=== PATIENT | female | born 1965 | race Caucasian/White ===

== ENCOUNTER 2017-09-11 17:54 | Emergency (ER) | payer OTHER ==
[2017-09-11] MEDS ORDERED: Diphtheria,Pertussis(Acell),Tetanus Vaccine 0.5 ML SDV IM ONE (18:19)
[2017-09-11] MEDS ORDERED: Bacitracin Oint 1 GM U/D Packet TOP ONE (18:41)
[2017-09-11 18:42] VITALS: BP 126/97
--- NOTE | 2017-09-11 18:48 | EDM.PDOC ---
ED HPI GENERAL MEDICAL PROBLEM - General Chief Complaint: Upper Extremity Injury/Pain Stated Complaint: SLICED END OF FINGER, [id number] Time Seen by Provider: 09/11/17 18:35 Source of Information: Reports: Patient History Limitations: Reports: No Limitations - History of Present Illness INITIAL COMMENTS - FREE TEXT/NARRATIVE: This 51 yo female patient reports to the ED with a laceration to her right distal thumb. The patient reports she was slicing potatoes when the incident happened. The patient came to the ED to get the bleeding to stop. Onset: Today Duration: Minutes:, Constant Location: Reports: Upper Extremity, Right Quality: Reports: Dull Severity: Mild Improves with: Reports: None Worsens with: Reports: None Associated Symptoms: Reports: No Other Symptoms - Related Data Allergies Allergy/AdvReac Type Severity Reaction Status Date / Time erythromycin base Allergy Cannot Verified 09/11/17 18:15 Remember lamotrigine [From Lamictal] AdvReac Mild Rash Verified 09/11/17 18:15 Penicillins AdvReac Mild Rash Verified 09/11/17 18:15 phenobarbital AdvReac Rash Unverified 09/11/17 18:15 Home Meds: Home Meds Aspirin [Adult Low Dose Aspirin EC] 81 mg PO DAILY 09/24/13 [History] Atenolol 25 mg PO DAILY 09/24/13 [History] Celecoxib [CeleBREX] 200 mg PO DAILY 09/24/13 [History] Gabapentin [Neurontin] 300 mg PO DAILY 09/24/13 [History] Hydrochlorothiazide 25 mg PO ASDIRECTED 09/24/13 [History] Omeprazole 20 mg PO DAILY 09/24/13 [History] buPROPion HCl [Wellbutrin Sr] 150 mg PO BID 09/24/13 [History] traZODone 25 tab PO BEDTIME 09/24/13 [History] Past Medical History HEENT History: Reports: None Cardiovascular History: Reports: None Respiratory History: Reports: Asthma, COPD Gastrointestinal History: Reports: None Genitourinary History: Reports: None 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 Musculoskeletal History: Reports: Other (See Below) Other Musculoskeletal History: back surgery Neurological History: Reports: None Endocrine/Metabolic History: Reports: None Hematologic History: Reports: None Immunologic History: Reports: None Oncologic (Cancer) History: Reports: None Dermatologic History: Reports: None - Past Surgical History HEENT Surgical History: Reports: None Cardiovascular Surgical History: Reports: None Respiratory Surgical History: Reports: None GI Surgical History: Reports: None Female Surgical History: Reports: None Social & Family History - Tobacco Use Smoking Status *Q: Never Smoker - Recreational Drug Use Recreational Drug Use: No Review of Systems - Review of Systems Review Of Systems: ROS reveals no pertinent complaints other than HPI. ED EXAM, GENERAL - Physical Exam Exam: See Below Exam Limited By: No Limitations General Appearance: Alert, WD/WN, Mild Distress Eye Exam: Bilateral Eye: EOMI, Normal Inspection, PERRL Ears: Normal External Exam, Normal Canal, Hearing Grossly Normal, Normal TMs Nose: Normal Inspection, Normal Mucosa, No Blood Throat/Mouth: Normal Inspection, Normal Lips, Normal Teeth, Normal Gums, Normal Oropharynx, Normal Voice, No Airway Compromise Head: Atraumatic, Normocephalic Neck: Normal Inspection, Supple, Non-Tender, Full Range of Motion Respiratory/Chest: No Respiratory Distress, No Accessory Muscle Use Cardiovascular: Normal Peripheral Pulses, Regular Rate, Rhythm (Female) Exam: Deferred Rectal (Female) Exam: Deferred Extremities: No Pedal Edema, Normal Capillary Refill Neurological: Alert, Oriented, CN II-XII Intact, Normal Cognition, Normal Gait, Normal Reflexes, No Motor/Sensory Deficits Psychiatric: Normal Affect, Normal Mood Skin Exam: Warm, Dry, Normal Color, No Rash, Other (The patient cut the tip of her right thumb off while cutting potatoes. There is no tissue present for suturing. ) Course - Orders/Labs/Meds Orders: Active Orders 24 hr Category Date Time Status Vaccines to be Administered [RC] PER UNIT ROUTINE Care 09/11/17 18:19 Active Bacitracin [Bacitracin Oint 1 GM] Med 09/11/17 18:41 Once 1 dose TOP ONETIME ONE Meds: Medications Discontinued Medications Generic Name Dose Route Start Last Admin Trade Name Freq PRN Reason Stop Dose Admin Diphtheria/Tetanus/Acell Pertussis 0.5 ml 09/11/17 18:19 09/11/17 18:26 Adacel IM 09/11/17 18:20 0.5 ml .ONCE ONE Administration Departure - Departure Time of Disposition: 18:45 Disposition: Home, Self-Care 01 Condition: Fair Clinical Impression: Laceration - Discharge Information Instructions: Laceration Care, Adult, [id number] Care Plan Goals: The patient was advised of the examination results during the visit. The patient was given a Tetanus shot while in the ED. A pressure dressing was placed over the wound. The patient was encouraged to keep the area clean and dry over the next 48 hours. If the patient has any additional symptoms or concerns, the patient should follow-up with her primary care facility or return to the emergency department. - My Orders Last 24 Hours: My Active Orders 09/11/17 18:19 Vaccines to be Administered [RC] PER UNIT ROUTINE 09/11/17 18:41 Bacitracin [Bacitracin Oint 1 GM] 1 dose TOP ONETIME ONE - Assessment/Plan Last 24 Hours: My Active Orders 09/11/17 18:19 Vaccines to be Administered [RC] PER UNIT ROUTINE 09/11/17 18:41 Bacitracin [Bacitracin Oint 1 GM] 1 dose TOP ONETIME ONE
== END 2017-09-11 19:17 | disposition home or self-care (01) ==
LOC: DL.ED 17:54
DX: S61.011A Laceration without foreign body of right thumb without damage to nail, initial encounter (principal); Z23 Encounter for immunization; Z79.82 Long term (current) use of aspirin; Z79.899 Other long term (current) drug therapy; Z88.0 Allergy status to penicillin; Z88.1 Allergy status to other antibiotic agents; Z88.8 Allergy status to other drugs, medicaments and biological substances; W45.8XXA Other foreign body or object entering through skin, initial encounter
CPT/HCPCS: 90471; 90715; 99283

== ENCOUNTER 2019-09-17 07:09 | Emergency (ER) | payer BC, OTHER ==
[2019-09-17 07:30] VITALS: BP 139/93; PULSE 96
[2019-09-17 07:53] LABS: ANION GAP 13.3; CHLORIDE,CL 104 mmol/L (101-111); SODIUM,NA 138 mmol/L (135-145)
--- NOTE | 2019-09-17 08:07 | EDM.PDOC ---
ED HPI GENERAL MEDICAL PROBLEM - General Chief Complaint: Cardiovascular Problem Stated Complaint: FEELING FUNNY/FEELS LIKE HEART BEATING FAST Time Seen by Provider: 09/17/19 07:50 Source of Information: Reports: Patient History Limitations: Reports: No Limitations - History of Present Illness INITIAL COMMENTS - FREE TEXT/NARRATIVE: This 53 yo female patient reports to the ED due to feeling heaviness in her chest/head, palpitations and dizziness. The patient reports she woke up this morning at about 0400 feeling like her head was heavy (the patient reports she felt like her heartbeat was in her head). The patient reports she got up from bed, mopped the floor then took her medications. The patient reports she also took her blood pressure (150/105) and pulse (110) at that time. The patient reports she has not been feeling right since that time. The patient reports a similar event about 2 weeks ago, but has not had any problems since that time. The patient reports her head still feels heavy, but does not have the heaviness in her chest at this time. Onset: Today Onset Date: 09/17/19 Onset Time: 04:00 Duration: Constant Location: Reports: Head, Chest Quality: Reports: Other Severity: Moderate Improves with: Reports: None Worsens with: Reports: None Context: Reports: Other Associated Symptoms: Reports: Other - Related Data Allergies Allergy/AdvReac Type Severity Reaction Status Date / Time erythromycin base Allergy Mild Cannot Verified 09/17/19 07:37 Remember lamotrigine [From Lamictal] AdvReac Mild Rash Verified 09/17/19 07:37 Penicillins AdvReac Rash Verified 09/17/19 07:36 phenobarbital AdvReac Rash Verified 09/17/19 07:37 Home Meds: Home Meds Aspirin [Adult Low Dose Aspirin EC] 81 mg PO DAILY 09/24/13 [History] Atenolol 25 mg PO DAILY 09/24/13 [History] Celecoxib [CeleBREX] 200 mg PO DAILY 09/24/13 [History] Gabapentin [Neurontin] 300 mg PO DAILY 09/24/13 [History] Hydrochlorothiazide 25 mg PO ASDIRECTED 09/24/13 [History] Omeprazole 20 mg PO DAILY 09/24/13 [History] buPROPion HCl [Wellbutrin Sr] 150 mg PO BID 09/24/13 [History] traZODone 25 tab PO BEDTIME 09/24/13 [History] Albuterol [Proventil HFA] 1 puff BUCCAL ASDIRECTED 09/11/17 [History] Past Medical History HEENT History: Reports: None Cardiovascular History: Reports: None Respiratory History: Reports: Asthma, COPD Gastrointestinal History: Reports: None Genitourinary History: Reports: None 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 Musculoskeletal History: Reports: Other (See Below) Other Musculoskeletal History: back surgery Neurological History: Reports: None Endocrine/Metabolic History: Reports: None Hematologic History: Reports: None Immunologic History: Reports: None Oncologic (Cancer) History: Reports: None Dermatologic History: Reports: None - Past Surgical History HEENT Surgical History: Reports: None Cardiovascular Surgical History: Reports: None Respiratory Surgical History: Reports: None GI Surgical History: Reports: None Female Surgical History: Reports: None Social & Family History - Family History Family Medical History: Noncontributory - Tobacco Use Smoking Status *Q: Never Smoker Second Hand Smoke Exposure: No - Caffeine Use Caffeine Use: Reports: Soda - Recreational Drug Use Recreational Drug Use: No ED ROS GENERAL - Review of Systems Review Of Systems: Comprehensive ROS is negative, except as noted in HPI. ED EXAM, GENERAL - Physical Exam Exam: See Below Exam Limited By: No Limitations General Appearance: Alert, WD/WN, Moderate Distress Eye Exam: Bilateral Eye: EOMI, Normal Inspection, PERRL Ears: Normal External Exam, Normal Canal, Hearing Grossly Normal, Normal TMs Nose: Normal Inspection, Normal Mucosa, No Blood Throat/Mouth: Normal Inspection, Normal Lips, Normal Teeth, Normal Gums, Normal Oropharynx, Normal Voice, No Airway Compromise Head: Atraumatic, Normocephalic Neck: Normal Inspection, Supple, Non-Tender, Full Range of Motion Respiratory/Chest: No Respiratory Distress, Lungs Clear, Normal Breath Sounds, No Accessory Muscle Use, Chest Non-Tender Cardiovascular: Normal Peripheral Pulses, Regular Rate, Rhythm, No Edema, No Gallop, No JVD, No Murmur, No Rub GI/Abdominal: Normal Bowel Sounds, Soft, Non-Tender, No Organomegaly, No Distention, No Abnormal Bruit, No Mass (Female) Exam: Deferred Rectal (Female) Exam: Deferred Back Exam: Normal Inspection, Full Range of Motion, NT Extremities: Normal Inspection, Normal Range of Motion, Non-Tender, Normal Capillary Refill, No Pedal Edema Neurological: Alert, Oriented, CN II-XII Intact, Normal Cognition, Normal Reflexes, No Motor/Sensory Deficits Psychiatric: Normal Affect, Anxious Skin Exam: Warm, Dry, Intact, Normal Color, No Rash Lymphatic: No Adenopathy Course - Vital Signs Last Recorded V/S: Last Vital Signs Temp 36.9 C 09/17/19 07:12 Pulse 96 09/17/19 07:12 Resp 15 09/17/19 07:12 BP 139/93 H 09/17/19 07:12 Pulse Ox 95 09/17/19 07:12 Orthostatic Blood Pressure [ 143/106 Standing] Orthostatic Blood Pressure [ 149/114 Sitting] Orthostatic Blood Pressure [ 137/96 Supine] - Orders/Labs/Meds Orders: Active Orders 24 hr Category Date Time Status EKG Documentation Completion [RC] URGENT Care 09/17/19 07:11 Active Labs: Laboratory Tests 09/17/19 09/17/19 09/17/19 Range/Units 07:21 07:21 08:05 WBC 7.1 (5.0-10.0) 10^3/uL RBC 4.32 (4.2-5.4) 10^6/uL Hgb 13.4 (12.0-16.0) g/dL Hct 40.1 (37.0-47.0) % MCV 92.8 (80-100) fL MCH 31.0 (27.0-34.0) pg MCHC 33.4 (33.0-35.0) g/dL Plt Count 288 (150-450) 10^3/uL Neut % (Auto) 66.6 (42.2-75.2) % Lymph % (Auto) 20.3 L (20.5-50.1) % Rains % (Auto) 8.4 H (2-8) % Eos % (Auto) 4.1 H (1.0-3.0) % Baso % (Auto) 0.6 (0.0-1.0) % Sodium 138 (135-145) mmol/L Potassium 3.3 L (3.6-5.0) mmol/L Chloride 104 (101-111) mmol/L Carbon Dioxide 24.0 (21.0-31.0) mmol/L Anion Gap 13.3 BUN 17 (7-18) mg/dL Creatinine 0.8 (0.6-1.3) mg/dL Est Cr Clr Drug Dosing 59.76 mL/min Estimated GFR (MDRD) > 60 BUN/Creatinine Ratio 21.25 Glucose 123 H (74-105) mg/dL Calcium 9.5 (8.4-10.2) mg/dl Total Bilirubin 0.5 (0.2-1.0) mg/dL AST 34 (10-42) IU/L ALT 35 (10-60) IU/L Alkaline Phosphatase 47 (42-121) IU/L Ammonia < 9 L (11-35) umol/L Troponin I < 0.02 (0.00-0.02) ng/ml Total Protein 7.3 (6.7-8.2) g/dl Albumin 3.9 (3.2-5.5) g/dl Globulin 3.4 Albumin/Globulin Ratio 1.15 Departure - Departure Time of Disposition: 08:35 Disposition: Home, Self-Care 01 Condition: Fair Clinical Impression: Anxiety about health Instructions: Panic Attack, [id number] Forms: ED Department Discharge Care Plan Goals: The patient was advised of the examination, lab and EKG results during the visit. The patient was encouraged to continue with her current medications. The patient should keep a log of her home blood pressures to review with her primary care facility. If the patient has any additional symptoms or concerns, the patient should either return to the emergency department or visit her primary care facility. - My Orders Last 24 Hours: My Active Orders 09/17/19 07:11 EKG Documentation Completion [RC] URGENT - Assessment/Plan Last 24 Hours: My Active Orders 09/17/19 07:11 EKG Documentation Completion [RC] URGENT
== END 2019-09-17 08:57 | disposition home or self-care (01) ==
LOC: DL.ED 07:09
DX: F41.9 Anxiety disorder, unspecified (principal); J44.9 Chronic obstructive pulmonary disease, unspecified; Z79.82 Long term (current) use of aspirin; Z88.0 Allergy status to penicillin; Z88.1 Allergy status to other antibiotic agents; Z88.8 Allergy status to other drugs, medicaments and biological substances
CPT/HCPCS: 36415; 80053; 82140; 84484; 85025; 93005; 99285-25

== ENCOUNTER 2022-07-02 08:25 | Emergency (ER) | payer BC, OTHER ==
[2022-07-02 08:40] VITALS: BP 123/66; PULSE 106
[2022-07-02] MEDS ORDERED: Orphenadrine 60 MG/2 ML Inj IM ONE (08:43)
[2022-07-02] MEDS ORDERED: Dexamethasone 4 MG/ML SDV IM ONE (08:43)
== END 2022-07-02 09:06 | disposition home or self-care (01) ==
LOC: DL.ED 08:25
DX: M79.601 Pain in right arm (principal); M79.602 Pain in left arm; J45.909 Unspecified asthma, uncomplicated; E66.9 Obesity, unspecified; Z68.30 Body mass index [BMI] 30.0-30.9, adult; Z88.1 Allergy status to other antibiotic agents; Z88.8 Allergy status to other drugs, medicaments and biological substances; Z88.0 Allergy status to penicillin; Z79.899 Other long term (current) drug therapy; Z79.82 Long term (current) use of aspirin
CPT/HCPCS: 96372; 99283; J1100; J2360

== ENCOUNTER 2023-03-31 05:55 | Day surgery (SDC) | payer BC ==
[2023-03-31] MEDS ORDERED: fentaNYL 100 MCG/2 ML SDV IV ONE ×3 (05:56→07:22)
[2023-03-31] MEDS ORDERED: Midazolam 1 MG/ML 2 ML SDV IV ONE ×3 (05:56→07:23)
[2023-03-31] MEDS ORDERED: Dextrose 5%-0.45% NaCl 1,000 ML IV SCH (06:45)
[2023-03-31] MEDS ORDERED: fentaNYL 100 MCG/2 ML SDV ONE (07:16)
[2023-03-31] MEDS ORDERED: Midazolam 1 MG/ML 2 ML SDV ONE (07:16)
[2023-03-31 08:47] VITALS: BP 112/85; PULSE 65
== END 2023-03-31 09:17 | disposition home or self-care (01) ==
LOC: DL.ENDO 05:55
PROVIDERS: ATTEND Internal Medicine Gastroenterology
DX: K21.00 Gastro-esophageal reflux disease with esophagitis, without bleeding (principal); K44.9 Diaphragmatic hernia without obstruction or gangrene; K31.7 Polyp of stomach and duodenum; E66.09 Other obesity due to excess calories; G47.33 Obstructive sleep apnea (adult) (pediatric); F31.9 Bipolar disorder, unspecified; I10 Essential (primary) hypertension; E78.5 Hyperlipidemia, unspecified; D50.0 Iron deficiency anemia secondary to blood loss (chronic); Z88.0 Allergy status to penicillin; Z88.2 Allergy status to sulfonamides; Z88.1 Allergy status to other antibiotic agents; Z88.8 Allergy status to other drugs, medicaments and biological substances; Z68.39 Body mass index [BMI] 39.0-39.9, adult
CPT/HCPCS: 87077; J2250; J3010; J7042

== ENCOUNTER 2023-04-04 06:18 | Day surgery (SDC) | payer BC ==
[~2023-04-04 06:18] MED LIST: Dextrose 5%-0.45% NaCl 1,000 ML IV SCH; Sodium Chloride 0.9% 10 ML Syringe FLUSH PRN; Sodium Chloride 0.9% 10 ML Syringe FLUSH SCH
[2023-04-04] MEDS ORDERED: fentaNYL 100 MCG/2 ML SDV ONE (08:01)
[2023-04-04] MEDS ORDERED: fentaNYL 100 MCG/2 ML SDV IVPUSH ONE (08:01)
[2023-04-04] MEDS ORDERED: Midazolam 1 MG/ML 2 ML SDV ONE (08:01)
[2023-04-04] MEDS ORDERED: Midazolam 1 MG/ML 2 ML SDV IVPUSH ONE (08:01)
[2023-04-04] MEDS ORDERED: fentaNYL 100 MCG/2 ML SDV IV ONE ×3 (08:09→08:17)
[2023-04-04] MEDS ORDERED: Midazolam 1 MG/ML 2 ML SDV IV ONE ×6 (08:10→08:16)
[2023-04-04 10:22] VITALS: BP 124/91
[2023-04-04 10:23] VITALS: PULSE 72
== END 2023-04-04 10:05 | disposition home or self-care (01) ==
LOC: DL.ENDO 06:18
PROVIDERS: ATTEND Internal Medicine Gastroenterology
DX: D50.9 Iron deficiency anemia, unspecified (principal); K57.30 Diverticulosis of large intestine without perforation or abscess without bleeding; K21.9 Gastro-esophageal reflux disease without esophagitis; M54.50 Low back pain, unspecified; F32.A Depression, unspecified; G47.33 Obstructive sleep apnea (adult) (pediatric); I10 Essential (primary) hypertension; E78.5 Hyperlipidemia, unspecified; E66.09 Other obesity due to excess calories; Z88.1 Allergy status to other antibiotic agents; Z88.0 Allergy status to penicillin; Z88.8 Allergy status to other drugs, medicaments and biological substances; Z68.39 Body mass index [BMI] 39.0-39.9, adult
CPT/HCPCS: 45378; J2250; J3010; J7042

== ENCOUNTER 2023-10-07 09:08 | Emergency (ER) | payer BC ==
[2023-10-07] MEDS ORDERED: Dexamethasone 4 MG/ML SDV IVPUSH ONE (09:18)
[2023-10-07] MEDS ORDERED: Ketorolac 30 MG/ML SDV IVPUSH ONE (09:21)
[2023-10-07] MEDS: Sodium Chloride 0.9% 10 ML Syringe FLUSH PRN ×2 (09:26→09:58)
[2023-10-07 09:32] LABS: BASOPHILS PERCENT AUTO 0.3 % (0.0-1.0); EOSINOPHILS PERCENT AUTO 2.4 % (1.0-3.0); HEMATOCRIT 40.2 % (37.0-47.0); HEMOGLOBIN 12.9 g/dL (12.0-16.0); LYMPHOCYTES PERCENT AUTO 18.7 % (20.5-50.1); MEAN CORPUSCULAR HEMOGLOBIN 30.6 pg (27.0-34.0); MEAN CORPUSCULAR HGB CONC 32.1 g/dL (33.0-35.0); MEAN CORPUSCULAR VOLUME 95.5 fL (80-100); MONOCYTES PERCENT AUTO 8.2 % (2-8); NEUTROPHILS PERCENT AUTO 70.4 % (42.2-75.2); PLATELET COUNT,PLT 267 10^3/uL (150-450); RED BLOOD CELL COUNT 4.21 10^6/uL (4.2-5.4); WHITE BLOOD CELL COUNT,WBC 7.8 10^3/uL (5.0-10.0)
[2023-10-07 09:42] VITALS: BP 151/92; PULSE 77
[2023-10-07 09:46] LABS: ANION GAP 10.9 mEq/L (7-13); CALCIUM 8.7 mg/dL (8.5-10.1); CREATININE 0.94 mg/dL (0.55-1.02); EST CRCL DRUG DOSING (CG) 48.57 mL/min; POTASSIUM,K 3.9 mmol/L (3.5-5.1)
== END 2023-10-07 11:08 ==
LOC: DL.ED 09:08
DX: M54.41 Lumbago with sciatica, right side (principal); G89.29 Other chronic pain; R15.9 Full incontinence of feces; I10 Essential (primary) hypertension; E66.9 Obesity, unspecified; Z68.39 Body mass index [BMI] 39.0-39.9, adult; Z88.0 Allergy status to penicillin; Z88.8 Allergy status to other drugs, medicaments and biological substances; Z79.82 Long term (current) use of aspirin; Z79.899 Other long term (current) drug therapy
CPT/HCPCS: 36415; 80048; 85025; 96374; 96375; 99284; J1100; J1885; J3490

== ENCOUNTER 2023-10-14 09:29 | Emergency (ER) | payer BC ==
[2023-10-14 09:50] VITALS: BP 155/103; PULSE 86
== END 2023-10-14 09:58 | disposition home or self-care (01) ==
LOC: DL.ED 09:29
DX: H10.022 Other mucopurulent conjunctivitis, left eye (principal); I10 Essential (primary) hypertension; J45.909 Unspecified asthma, uncomplicated; E66.9 Obesity, unspecified; Z68.39 Body mass index [BMI] 39.0-39.9, adult; Z88.0 Allergy status to penicillin; Z88.8 Allergy status to other drugs, medicaments and biological substances; Z79.82 Long term (current) use of aspirin; Z79.899 Other long term (current) drug therapy
CPT/HCPCS: 99283

== ENCOUNTER 2024-12-28 18:43 | Emergency (ER) | payer BC, OTHER ==
[2024-12-28 19:07] VITALS: BP 139/92; PULSE 99
[2024-12-28] MEDS: Dexamethasone 4 MG/ML SDV IM ONE (19:09)
== END 2024-12-28 19:11 | disposition home or self-care (01) ==
LOC: DL.ED 18:43
DX: J40 Bronchitis, not specified as acute or chronic (principal); M54.32 Sciatica, left side; I10 Essential (primary) hypertension; J44.89 Other specified chronic obstructive pulmonary disease; E66.9 Obesity, unspecified; Z68.37 Body mass index [BMI] 37.0-37.9, adult; Z88.5 Allergy status to narcotic agent; Z88.0 Allergy status to penicillin; Z88.1 Allergy status to other antibiotic agents; Z88.8 Allergy status to other drugs, medicaments and biological substances; Z79.51 Long term (current) use of inhaled steroids; Z79.899 Other long term (current) drug therapy
CPT/HCPCS: 96372; 99283; J1100

== ENCOUNTER 2025-06-14 10:14 | Emergency (ER) | payer BC, OTHER ==
[2025-06-14 10:54] VITALS: BP 128/92; PULSE 86
== END 2025-06-14 10:52 | disposition home or self-care (01) ==
LOC: DL.ED 10:14
DX: M54.9 Dorsalgia, unspecified (principal); I10 Essential (primary) hypertension; E78.00 Pure hypercholesterolemia, unspecified; E66.9 Obesity, unspecified; Z88.0 Allergy status to penicillin; Z88.8 Allergy status to other drugs, medicaments and biological substances; Z88.1 Allergy status to other antibiotic agents; Z79.899 Other long term (current) drug therapy; Z86.16 Personal history of COVID-19; Z68.35 Body mass index [BMI] 35.0-35.9, adult
CPT/HCPCS: 96372; 99282; 99283; J1171